=== PATIENT | male | born 1955 ===

== ENCOUNTER 2023-02-28 09:42 | Outpatient (OUT) | payer MEDICARE, SELFPAY ==
--- NOTE | 2023-02-28 09:53 | ECG_ITS ---
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
--- NOTE | 2023-02-28 10:48 | P.GSHP_ITS ---
History of Present Illness History of Present Illness Chief complaint: BPH with Obstruction Narrative: Patient presents for preadmission testing accompanied by his . The patient states he had an episode of urinary retention for which he was evaluated in the emergency department and a catheter was placed. Since then he had a cystoscopy performed, he is taking Flomax, and he is able to urinate on his own at this point, but he is still having incomplete bladder emptying, frequency, and urgency with urination. He denies hematuria, dysuria, fever, nausea, vomiting, or any other complaints. Review of Systems ROS Narrative REVIEW OF SYSTEMS: Negative except as stated in HPI, ten or more systems reviewed. Constitutional: No fever , chills, weakness ENT: No sore throat or epistaxis Cardiovascular: No edema, chest pain, palpitations, or activity intolerance Respiratory: No shortness of breath, cough, or wheezing Musculoskeletal: Chronic back and neck pain Gastrointestinal: No abdominal pain, constipation, diarrhea, or vomiting Genitourinary: No dysuria or hematuria Neurological: No numbness, tingling, weakness, or headache Psychiatric: No mood changes PFSH PFSH Medical History (Updated 02/28/23 @ 10:26 by Trinity Llanes NP) Surgical History (Updated 02/28/23 @ 10:26 by Trinity Llanes NP) Family History (Updated 02/28/23 @ 10:26 by Trinity Llanes NP) Other Family history of gastric cancer Family history of heart disease Family history of hypertension Social History (Updated 02/28/23 @ 10:20 by Trinity Llanes NP) Within the past year, how often did you have a drink containing alcohol: never Score interpretation: A score less than 4 is consistent with normal alcohol consumption. Smoking status: Current every day smoker What tobacco products do you use: cigarettes Pack-years instructions: Please document either packs per day or cigarettes per day in order for pack years to calculate correctly. If using both packs per day and cigarettes per day, please make sure that they denote the same thing. If they differ, pack- years will calculate based on packs per day. Packs Per Day Cigarettes Per Day 1/4 of a pack 5 1/2 a pack 10 3/4 of a pack 15 1 pack 20 1.5 pack 30 2 packs 40 2.5 packs 50 3 packs 60 Cigarettes per day: 30 Years smoked: 46 Smoking pack-years: 69.00 Non-prescribed substance use: denies use Highest level of school completed/degree received: high school graduate Meds Home Medications and Allergies Home Medications Medication Instructions Recorded Confirmed Type albuterol sulfate 90 mcg/actuation 2 inh inhalation Q6H PRN shortness 02/28/23 02/28/23 History aerosol inhaler (Ventolin HFA) of breath or wheezing celecoxib 200 mg capsule 200 mg PO Q12H 02/28/23 02/28/23 History ciprofloxacin HCl 500 mg tablet 500 mg PO Q12H 02/28/23 02/28/23 History famotidine 20 mg tablet 20 mg PO QDAY 02/28/23 02/28/23 History gabapentin 600 mg tablet 600 mg PO Q8H 02/28/23 02/28/23 History gabapentin 800 mg tablet 800 mg PO TID 02/28/23 02/28/23 History methocarbamol 750 mg tablet 750 mg PO BID PRN muscle spasm 02/28/23 02/28/23 History multivitamin (Daily Multi-Vitamin 1 tab PO DAILY 02/28/23 02/28/23 History tablet) omeprazole 40 mg capsule,delayed 40 mg PO QPM 02/28/23 02/28/23 History release sildenafil 100 mg tablet 100 mg PO Q24H PRN sexual activity 02/28/23 02/28/23 History tamsulosin 0.4 mg capsule 0.4 mg PO Q24H 02/28/23 02/28/23 History Allergies Allergy/AdvReac Type Severity Reaction Status Date / Time oxycodone [From OxyContin] Allergy Agitated Verified 02/28/23 10:11 Exam Narrative Exam Narrative: Constitutional: Awake, alert, comfortable, well-appearing, nontoxic, interactive, vital signs as charted Head: Normocephalic, atraumatic Neck: Supple, normal appearance, normal range of motion, no meningeal signs, no lymphadenopathy Respiratory: No respiratory distress, breath sounds clear Cardiovascular: Regular rate and rhythm, strong and regular heart tones Abdomen: Nontender, normal bowel sounds, soft, no CVA tenderness Musculoskeletal: Normal gait, no swelling or edema Skin: No rashes or induration, no lesions, only visible skin inspected Neuro: No neurological deficits, normal sensation Psychiatric: Oriented ?3, normal affect Assessment and Plan Assessment and Plan (1) BPH with urinary obstruction: Plan Cystoscopy, transurethral resection of the prostate scheduled with Dr. Maxwell 03/17/2023.
[2023-02-28 11:26] LABS: Basophils Absolute Auto 0.1 10^3/uL (0.0-0.1); Basophils Percent Auto 0.7 % (0.2-2.0); Eosinophils Absolute Auto 0.4 10^3/uL (0.0-0.7); Eosinophils Percent Auto 5.4 % (0.9-7.0); Hematocrit 40.6 % (42.0-54.0); Hemoglobin 12.8 g/dL (14.0-18.0); Immature Granulocytes Abs Auto 0.01 10^3/uL (0.00-0.03); Immature Granulocytes Pct Auto 0.1 % (0.0-0.5); Lymphocytes Absolute Auto 1.4 10^3/uL (1.2-3.8); Lymphocytes Percent Auto 18.3 % (20.5-60.0); Mean Corpuscular HGB Conc 31.5 g/dL (29.9-35.2); Mean Corpuscular Hemoglobin 28.4 pg (25.9-34.0); Mean Corpuscular Volume 90.2 fL (80.0-94.0); Mean Platelet Volume 9.7 fL (9.5-13.5); Monocytes Absolute Auto 0.7 10^3/uL (0.3-0.8); Monocytes Percent Auto 9.7 % (1.7-12.0); Neutrophils Absolute Auto 4.9 10^3/uL (1.4-6.5); Neutrophils Percent Auto 65.8 % (43.0-75.0); Platelet Count 240 10^3/uL (150-450); Red Cell Distribution Width 14.9 % (11.0-15.0); White Blood Count 7.4 10^3/uL (4.0-11.0)
[2023-02-28 11:42] LABS: INR 0.97; Partial Thromboplastin Time 29.6 sec (22.3-36.2); Prothrombin Time 10.3 sec (9.0-11.6)
[2023-02-28 11:51] LABS: Anion Gap 11.8; BUN Creatinine Ratio 18.4; Calcium 9.5 mg/dL (8.5-10.1); Carbon Dioxide 28.5 mmol/L (21.0-32.0); Chloride 106 mmol/L (98-107); Estimated GFR (African America >60 (>=60); Estimated GFR (Non-African Ame >60 (>=60); Glucose 94 mg/dL (74-106); Potassium 4.3 mmol/L (3.5-5.1); Sodium 142 mmol/L (136-145)
== END 2023-02-28 09:43 | disposition home or self-care (01) ==
LOC: PST 09:46
PROVIDERS: Visit Provider Urology
DX: Z01.810 Encounter for preprocedural cardiovascular examination (principal); Z01.812 Encounter for preprocedural laboratory examination; N40.1 Benign prostatic hyperplasia with lower urinary tract symptoms; I95.9 Hypotension, unspecified; M19.90 Unspecified osteoarthritis, unspecified site; K21.9 Gastro-esophageal reflux disease without esophagitis; R31.9 Hematuria, unspecified; G62.9 Polyneuropathy, unspecified
CPT/HCPCS: 80048; 85025; 85610; 85730; 93005; G0463

== ENCOUNTER 2023-03-17 11:05 | Day surgery (SDC) | payer MEDICARE, SELFPAY ==
[2023-02-28 10:37] VITALS: BP 133/73; PULSE 54; RESP 20; TEMP 36.3; O2SAT 96; BMI 32.9
[2023-03-17] VITALS (18 sets, daily range): BP systolic 114–155; BP diastolic 57–79; PULSE 61–90; RESP 13–25; TEMP 36.4–37.3; O2SAT 91–97; BMI 32.9
[2023-03-17] MEDS: LACTATED RINGER'S SOLUTION 1,000 ML 50 ML IV (11:41)
[2023-03-17] MEDS: LEVOFLOXACIN IN DEXTROSE 5 % 500 MG/100 ML PIGGYBACK 100 MG IV (12:55)
--- NOTE | 2023-03-17 14:07 | PM.URSON ---
Urology Surgery Operative Note Operative Note Procedure Date: 03/17/23 Time Out Performed: yes Pre-op Diagnosis: benign prostatic hypertrophy with L UTS refractory to medications and urinary retention Post-op Diagnosis: same as pre-op Procedures performed: #1. Cystoscopy. #2. Transurethral resection of the prostate. Anesthesia: GETA Primary Surgeon: Mateo Maxwell Complications: none Estimated blood loss (mL): 20 Findings: trilobar obstruction of the prostate Specimens: prostate chips Drains: 22 [place] three-way coud? Zhong catheter in the bladder to CBI Indications for Procedures: this gentleman has benign prostatic hypertrophy with L UTS despite medications. He went into rachel urinary retention. He is obstructed urodynamically and endoscopically. He now presents for transurethral resection of the prostate. He has signed an informed consent after all risks were explained. Some of these risks include bleeding, infection, anesthesia, retrograde ejaculation, urinary incontinence both temporary and permanent and erectile dysfunction to name a few. Detailed description of Procedure: The patient was brought to the operating room and placed on the operating room table in the supine position. SCDs were placed on the lower extremities and turned on and functioning during the entire case. Timeout was done by all parties in the room. We all agreed upon the patient's identification and the planned procedures for this patient. Genn. anesthesia was then administered. The patient was then repositioned into the modified dorsal lithotomy position. All pressure points were satisfactorily padded. Genitalia were sterilely prepped and draped in usual fashion.I started by passing a 26 [place] Olympus resectoscope with the standard bipolar loop electrode per urethra and into the bladder. The ureteral orifices were marked with the loop electrode. I then started on the median lobe and resected this down to the bladder neck level. I then resected posteriorly from the bladder neck to the veru. The right lateral lobe and left lateral lobe along with the anterior tissue was then similarly resected. The apex was opened up carefully. The resection bed was coagulated with the loop electrode. The [employer] evacuator was used to get all the prostate chips out of the bladder and these were sent for permanent sections. Upon completion, with the scope at the apex, the prostatic urethra and bladder neck were now wide open. There was no bleeding. There were no chips in the bladder. The scope was then removed. I then passed a 22 [place] three-way coud? Zhong catheter in the bladder. 30 mL of fluid was placed in the balloon. It manually irrigated to clear. It was taped to traction and CBI was started. The anesthetic was then reversed. He was then transferred to a [facility] bed and wheeled to PACU in stable condition.
--- NOTE | 2023-03-17 14:16 | PC.NURSE ---
urine pink, clear; and draining without difficulty
--- NOTE | 2023-03-17 14:19 | PM.URSON ---
Urology Surgery Operative Note Operative Note Procedure Date: 03/17/23 Time Out Performed: yes
--- NOTE | 2023-03-17 14:23 | PC.NURSE ---
clear drainage out of 3 way at this time
[2023-03-17] MEDS: SODIUM CHLORIDE IRRIG SOLUTION 3,000 ML 3000 ML IRR ×6 (14:40→23:05)
[2023-03-17] MEDS: SOLIFENACIN SUCCINATE 10 MG TABLET PO (15:11)
[2023-03-17] MEDS: 0.9 % SODIUM CHLORIDE 1,000 ML 80 ML IV (16:36)
[2023-03-17] MEDS: CEFAZOLIN SODIUM/DEXTROSE,ISO 1 GM/50 ML IV.SOLN IV ×2 (16:39→22:10)
--- NOTE | 2023-03-17 19:43 | RESP.RT ---
No PRN breathing tx given. Pt denies need. No respiratory distress noted.
[2023-03-17] MEDS: CELECOXIB 200 MG CAPSULE PO (21:12)
[2023-03-17] MEDS: GABAPENTIN 400 MG CAPSULE 800 MG PO (21:12)
[2023-03-17] MEDS: FAMOTIDINE 20 MG TABLET PO (21:12)
[2023-03-17] MEDS: TAMSULOSIN HCL 0.4 MG CAPSULE PO (21:13)
[2023-03-17] MEDS: TEMAZEPAM 15 MG CAPSULE PO (22:10)
[2023-03-18] MEDS: SODIUM CHLORIDE IRRIG SOLUTION 3,000 ML 3000 ML IRR (02:36)
[2023-03-18 04:14] VITALS: BP 123/53; PULSE 55; RESP 16; TEMP 37.1; O2SAT 93
[2023-03-18] MEDS: 0.9 % SODIUM CHLORIDE 1,000 ML 80 ML IV (05:02)
[2023-03-18] MEDS: OMEPRAZOLE 40 MG CAPSULE.DR PO (06:16)
[2023-03-18] MEDS: GABAPENTIN 400 MG CAPSULE 800 MG PO (06:16)
[2023-03-18] MEDS: MULTIVITAMIN TABLET 1 TAB PO (08:22)
[2023-03-18] MEDS: CELECOXIB 200 MG CAPSULE PO (08:22)
[2023-03-18] MEDS: SOLIFENACIN SUCCINATE 10 MG TABLET PO (08:22)
== END 2023-03-18 09:35 | disposition home or self-care (01) ==
LOC: SURGOUT 14:02 → MS 14:33
PROVIDERS: Visit Provider Urology
PROC: (CPT 52601; principal; 2023-03-17 12:30)
DX: N40.1 Benign prostatic hyperplasia with lower urinary tract symptoms (principal); R33.8 Other retention of urine; Z79.899 Other long term (current) drug therapy; K21.9 Gastro-esophageal reflux disease without esophagitis; F17.210 Nicotine dependence, cigarettes, uncomplicated; Z86.010 Personal history of colon polyps
CPT/HCPCS: 52601; 36415; 88305; J2704